=== PATIENT | male | born 1995 | race Caucasian/White ===

== ENCOUNTER 2022-11-05 09:42 | Emergency (ER) | payer OTHER, SELFPAY ==
[2022-11-05 09:44] VITALS: BP 131/70; PULSE 96; RESP 14; TEMP 36.3; O2SAT 99; BMI 23.4
--- NOTE | 2022-11-05 10:08 | CT_ITS ---
INDICATION: Pain EXAMINATION: CT ABDOMEN AND PELVIS WITH CONTRAST - CT Abdomen And Pelvis W/ Contrast Injection TECHNIQUE: Helically acquired images were obtained of the abdomen and pelvis following IV contrast. A radiation dose optimization technique was used for this scan. IV Contrast dosage and agent: Oral contrast: None. COMPARISON: None. FINDINGS: LOWER CHEST: Lung bases are clear. No cardiomegaly or pericardial effusion. LIVER: Homogeneous. No focal mass. GALLBLADDER AND BILIARY TREE: No calcified gallstones. No gallbladder distension or wall edema. No intra- or extrahepatic biliary ductal dilation. PANCREAS: No focal cystic or solid mass. SPLEEN: Normal size without focal cystic or solid mass. ADRENAL GLANDS: No nodules. KIDNEYS AND URETERS: Normal renal size and position. No hydronephrosis. PERITONEUM: No ascites or free air. No other fluid collection. BOWEL: No evidence of acute appendicitis. Within the midabdomen there is mild small bowel dilatation without evidence of differential air-fluid levels. This is seen extending from series 2 image 47 to series 2 image 76. Findings are consistent with mild small bowel ileus. Stomach is nondistended limiting evaluation, remainder of small bowel and colon normal in appearance. No focal inflammatory change. LYMPH NODES: No enlarged mesenteric or retroperitoneal lymph nodes. VESSELS: Aorta is non-dilated. URINARY BLADDER: Unremarkable. REPRODUCTIVE ORGANS: No pelvic masses. ABDOMINAL WALL: No discrete abdominal or pelvic wall hernia. BONES: No lytic or blastic abnormality. CT/Abdomen/Pelvis W IV Cont ONLY IMPRESSION: Mild small bowel ileus mid abdomen. Electronically Signed: Dominik Christian MD, SERA at 11:19 EST ,
--- NOTE | 2022-11-05 10:09 | ED.VIS.GI ---
HPI HPI - GI History of Present Illness Chief Complaint: Nausea/Vomiting Narrative Narrative: 27-year-old male past medical history of remote appendectomy presents with nausea, vomiting, and loose stool with crampy abdominal pain diffusely. He states his symptoms began around 2:00 in the morning, 8 hours ago. He had eaten ham and potatoes and beans, and got a funny feeling in his stomach. Since 2:00 in the morning, he has vomited 4 times, the first few times they became bilious, but then he states that he had dark brown emesis. He had loose stool. He denies any fevers but states he got chilled with his last vomiting, but no rigors. He does think that the food made it worse. He presents because he is unable to hold anything down and pain mainly in his epigastrium to right upper quadrant. PFSH PFSH Home Medications ondansetron 4 mg disintegrating tablet 4 mg PO Q6H PRN nausea and vomiting #12 tabs 11/05/22 [Rx Last Taken Unknown] Allergy/AdvReac Type Severity Reaction Status Date / Time No Known Allergies Allergy Verified 11/05/22 09:45 Social History Smoking Status: Never smoker ROS ROS ED ROS Narrative Constitutional: No fever, no shaking rigors/chills. HEENT: No sore throat. No neck pain. No loss of vision. No rhinorrhea. Cardiovascular: No chest pain. No palpitations. No pedal edema. Respiratory: No cough, no shortness of breath. Abdominal: Diffuse, crampy abdominal pain, with sharp epigastric and right upper quadrant. Positive nausea and vomiting x4 with loose stool. No bright red blood/hematemesis. Genitourinary: No dysuria. No hematuria. Musculoskeletal: No myalgias. No arthralgias. Neurologic: No headaches. No dizziness. No lightheadedness. Skin: No rash. No change in color. Psychiatric: No depression. No anxiety. EXAM Physical Exam Narrative Exam Narrative: Afebrile. Vital signs noted. HEENT: Normocephalic. Atraumatic. PERRL, EOMI. Neck soft and supple. No point tenderness or step off. Cardiovascular: Regular rate and rhythm. No murmurs, rubs, or gallops appreciated. Respiratory: No tachypnea. Lungs clear to auscultation bilaterally. Gastrointestinal: Abdomen soft, mild tenderness right upper quadrant to epigastrium, negative Michaud sign, with normoactive bowel sounds. No rebound or guarding. Neurological: Awake. Alert. Nonfocal, nonlateralizing. Skin: No rash. Normal color. No pallor. Musculoskeletal: No pedal edema. Full range of motion extremities. Const Vital Signs: 11/05/22 09:44 Temperature 97.3 F L Temperature Source Temporal Pulse Rate 96 Respiratory Rate 14 Blood Pressure 131/70 H Blood Pressure Mean 90 Pulse Ox 99 Oxygen Delivery Method Room Air MDM MDM MDM Narrative Medical decision making narrative: Given his nausea and vomiting with previous appendectomy, in the differential diagnosis is bowel obstruction, given his tenderness in the right upper quadrant concern is also for cholecystitis versus cholelithiasis. Comprehensive work-up was pursued. We will start with imaging with CT imaging to help rule out obstruction and to see if ultrasound is required of the right upper quadrant. I reviewed his laboratory work. He has slightly elevated white count of 12.6 which I think could be demargination from his vomiting, hemoglobin normal at 16.5, hematocrit 50 with a normal platelet count of 230. CMP shows BUN slightly elevated at 23 with creatinine 1.07. He has an AST of 61 and an ALT of 178 but normal alk phos of 54. Lipase normal at 80. I reviewed his CT imaging and reviewed the radiology report which shows mild small bowel ileus in the mid abdomen but no evidence of mechanical obstruction. Upon repeat examination, there is been no vomiting in the ED, patient states that he feels improved. With a mild ileus, I do feel that he can be discharged safely home with follow-up as he was instructed on bowel rest for at least a day. He had been bolused normal saline so I am not concerned about dehydration. He was written for ondansetron 4 mg oral disintegrating tablets #12. He will start a clear liquid diet tomorrow and advance as tolerated. He was told that his condition could worsen and that he should return with inability to tolerate liquids, increased pain, fever, new or worsening symptoms. Patient is agreeable to the plan. Disposition is discharged home in stable condition. Lab Data Attestation: I reviewed the patient's lab results. Labs: Laboratory Results - last 24 hr 11/05/22 11/05/22 10:22 10:22 WBC 12.6 H RBC 5.59 Hgb 16.5 Hct 50.0 MCV 89.4 MCH 29.5 MCHC 33.0 RDW Std Deviation 43.3 RDW Coeff of Aaron 13.2 Plt Count 230 MPV 10.8 Immature Gran % (Auto) 0.200 Neut % (Auto) 89.5 H Lymph % (Auto) 4.4 L Darke % (Auto) 4.5 Eos % (Auto) 1.2 Baso % (Auto) 0.2 Absolute Neuts (auto) 11.3 H Absolute Lymphs (auto) 0.56 L Nucleated RBC % 0 Platelet Estimate ADEQUATE RBC Morphology NORM C+C Sodium 141 Potassium 4.0 Chloride 104 Carbon Dioxide 31.0 Anion Gap 6 BUN 23 H Creatinine 1.07 Estim Creat Clear Calc 102.78 Est GFR (MDRD) Af Amer 106 Est GFR (MDRD) Non-Af 87 BUN/Creatinine Ratio 21.5 H Glucose 121 H Calcium 9.8 Total Bilirubin 1.00 AST 61 H ALT 178 H Alkaline Phosphatase 54 Total Protein 7.7 Albumin 4.5 Globulin 3.2 Albumin/Globulin Ratio 1.4 Lipase 80 Radiography Diagnostic Testing: Clinical Impression(s) from Imaging Studies Abdomen/Pelvis CT 11/05/22 10:08 IMPRESSION: Mild small bowel ileus mid abdomen. Electronically Signed: Dominik Christian MD, SER[facility] at 11:19 EST Reading Location ID and State: [facility] / [place] Tel , Service support , Discharge Plan Triage Chief Complaint: Nausea/Vomiting ED Provider: Jordan Miller Dx/Rx/DC Orders Clinical Impression: Nausea and vomiting, Ileus Instructions: Ileus, ED Vomiting (Adult) Prescriptions: New ondansetron 4 mg tablet,disintegrating 4 mg PO Q6H PRN (Reason: nausea and vomiting) Qty: 12 0RF [facility] [Primary [facility] Provider] - 3-5 Days if not improving Disposition Disposition: Home, Self Care
[2022-11-05] MEDS: 0.9% Normal Saline 1,000 ML 1000 ML IV (10:24)
[2022-11-05] MEDS: Dicyclomine 20 MG/2 ML Vial IM (10:29)
[2022-11-05] MEDS: Ondansetron 4 MG/2 ML Vial IV (10:29)
[2022-11-05 10:30] LABS: Absolute Lymphocyte Count 0.56 X10^3/uL (0.83-4.51); Absolute Neutrophil Count 11.3 X10^3/uL (2.0-7.7); Basophil# 0.03 X10^3/uL; Basophil% 0.2 % (0-1); Eosinophil# 0.15 X10^3/uL; Eosinophils% 1.2 % (0-5); Hemoglobin 16.5 g/dL (13.0-16.5); Lymphocyte # 0.56 X10^3/ul (0.83-4.51); Lymphocyte % 4.4 % (19-41); Mean Corpuscular Hgb 29.5 pg (27.0-32.0); Mean Corpuscular Volume 89.4 fL (80-94); Mean Platelet Vol. 10.8 fl (6.2-12.0); Monocyte# 0.57 X10^3/uL; Monocyte% 4.5 % (0-10); NRBC Flagged by Analyzer 0 % (0-5); Neutrophil # 11.25 X10^3/uL (2.7-7.7); Neutrophil % 89.5 % (47-70); POSITIVE DIFFERENTIAL YES; Platelet Count 230 K/mm3 (150-450); RBC Distribution Width CV 13.2 % (11.6-14.6); RBC Distribution Width SD 43.3 fl (35.1-43.9); Red Blood Count 5.59 M/mm3 (4.6-6.2); White Blood Count 12.6 K/mm3 (4.4-11.0)
[2022-11-05 10:41] LABS: Differential Indicated SCAN CRITERIA MET
[2022-11-05 10:48] LABS: ALB/GLOB Ratio 1.4 RATIO (0.9-2.4); AST(SGOT) 61 U/L (15-37); Alanine Aminotransfer ALT/SGPT 178 U/L (16-61); Albumin, Serum 4.5 g/dL (3.2-5.0); Alkaline Phosphatase 54 U/L (45-117); Anion Gap 6 (5-15); BUN 23 mg/dL (7-18); BUN/Creat Ratio 21.5 RATIO (10-20); Calcium,Total 9.8 mg/dL (8.5-10.1); Chloride 104 mmol/L (98-107); Creatinine, Serum 1.07 mg/dL (0.70-1.30); EST Glomerular Filtration Rate 87 mL/min (>60); Est Glom Filt Rate - Afr Amer 106 mL/min (>60); Estimated Creatinine Clearance 102.78 ml/min; Globulin 3.2 g/dL (2.2-4.2); Glucose 121 mg/dL (74-106); Lipase 80 U/L (73-393); Protein, Total 7.7 g/dL (6.4-8.2); Sodium Level 141 mmol/L (136-145)
[2022-11-05 11:15] LABS: Platelet Estimate ADEQUATE (ADEQ); Red Cell Morphology NORM C+C NORMAL (NORM C&C)
[2022-11-05 13:45] VITALS: BP 126/77; PULSE 62; RESP 15; O2SAT 98
== END 2022-11-05 13:57 | disposition home or self-care (01) ==
PROVIDERS: Emergency Provider Emergency Medicine; Visit Provider Emergency Medicine
DX: K56.7 Ileus, unspecified (principal)
CPT/HCPCS: 74177; 80053; 83690; 85025; 96361; 96372; 96374; 99282; Q9967; A4216; J2405

== ENCOUNTER 2023-05-22 19:01 | Emergency (ER) | payer OTHER, SELFPAY ==
[2023-05-22 19:02] VITALS: BP 129/75; PULSE 82; RESP 18; TEMP 36.1
[2023-05-22 19:03] VITALS: BP 129/75; PULSE 82; RESP 18; TEMP 36.1; BMI 23.1
--- NOTE | 2023-05-22 21:38 | EX.ED.DYSGE1 ---
HPI History of Present Illness Chief Complaint: General Illness Informant: patient Onset/Context/Timing Onset: Days (3 days) Context: Gradual Onset Narrative Narrative: Patient presents due to concerns for COVID. He was exposed to someone with COVID on Monday. On Monday he developed headache, dry throat, cough. He reports poor p.o. intake because it makes him nauseated. He did not test for COVID. PFSH PFSH Medical History no medical history no medical history Home Medications ondansetron 4 mg disintegrating tablet 4 mg PO Q6H PRN nausea and vomiting #12 tabs 11/05/22 [Rx Last Taken Unknown] Allergy/AdvReac Type Severity Reaction Status Date / Time No Known Allergies Allergy Verified 05/22/23 19:06 Surgical History (Updated 05/22/23 @ 21:[address] Sandhya Torres MD) History of cholecystectomy Social History Smoking Status: Never smoker ROS ROS ED Constitutional Constitutional ED: Reports fever(s) and subjective; Denies chills Eyes Eyes: Denies change in vision ENT ENT ED: Reports other Details: Dry throat ; Denies rhinorrhea or sore throat Cardiovascular Cardiovascular: Denies chest pain or palpitations Respiratory/Chest Respiratory/Chest: Reports cough; Denies dyspnea Gastrointestinal Gastrointestinal: Reports nausea; Denies abdominal pain, diarrhea or vomiting Genitourinary Genitourinary ED: Denies dysuria Musculoskeletal Musculoskeletal: Reports myalgias; Denies back pain or extremity pain Integumentary Denies Abrasions or rash Neurologic Neurologic: Reports headache(s); Denies weakness Psychiatric Psychiatric: Denies anxiety or depression Allergic/Immunologic Allergic/Immunologic ED: Denies lip swelling or urticaria EXAM Physical Exam Const Vital Signs: 05/22/23 19:03 05/22/23 19:02 05/22/23 21:32 Temperature 96.9 F L 96.9 F L Temperature Source Temporal Temporal Pulse Rate 82 82 Respiratory Rate 18 18 Respiratory Effort Normal Respiratory Pattern Normal Blood Pressure 129/75 H 129/75 H Blood Pressure Mean 93 93 Positive well nourished and well developed General Appearance ED: well developed Eyes EOMs intact bilaterally Chest Wall inspection of chest normal and palpation of chest normal Resp normal respiratory effort and clear to auscultation bilaterally Cardio regular rate and regular rhythm GI non-tender Palpation: soft Neuro oriented x3 and no sensory deficits noted Motor Exam: strength 5/5 throughout Psych mental status grossly normal Skin no rashes or lesions noted MDM MDM MDM Narrative Medical decision making narrative: Patient given Tylenol and Zofran. Chest x-ray obtained given the patient's cough to evaluate for pneumonia. Swab for COVID and influenza obtained. Radiography Diagnostic Testing: Clinical Impression(s) from Imaging Studies Chest X-Ray 05/22/23 21:40 IMPRESSION: No radiographic evidence of acute cardiopulmonary disease. Electronically Signed: Wolfgang Serra MD at 22:16 EDT , Treatment and Re-Evaluation :: Portable chest x-ray per my interpretation reveals no evidence of infiltrate. Influenza test is negative. COVID test is positive. Test results discussed with the patient. He will continue supportive care. Discharge Plan Triage Chief Complaint: General Illness ED Provider: Sandhya Torres Dx/Rx/DC Orders Clinical Impression: COVID-19 Instructions: Coronavirus Disease 2019 (COVID-19): Overview, Coronavirus Disease 2019 (COVID-19): Caring for Yourself or Others Prescriptions: No Action ondansetron 4 mg tablet,disintegrating 4 mg PO Q6H PRN (Reason: nausea and vomiting) Qty: 12 0RF [facility] Care Provider[facility] [Primary [facility] Provider] - As Needed Disposition Disposition: Home, Self Care
--- NOTE | 2023-05-22 21:40 | RAD_ITS ---
INDICATION: cough EXAMINATION/TECHNIQUE: X-RAY - XR Chest 1 View COMPARISON: None. FINDINGS: LINES/DEVICES: None. LUNGS: No consolidation, edema or effusion. No pneumothorax. MEDIASTINUM AND CARDIOVASCULAR STRUCTURES: Cardiac silhouette not enlarged. Central airways and mediastinal contour are unremarkable. BONES AND SOFT TISSUES: Minimal S-shaped scoliosis. RAD/Chest 1 View (Portable) IMPRESSION: No radiographic evidence of acute cardiopulmonary disease. Electronically Signed: Wolfgang Serra MD at 22:16 EDT ,
[2023-05-22] MEDS: Ondansetron ODT 4 MG Tablet PO (21:47)
[2023-05-22] MEDS: Acetaminophen 500 MG Tablet 1000 MG PO (21:47)
[2023-05-22 22:38] VITALS: O2SAT 96
== END 2023-05-22 22:39 | disposition home or self-care (01) ==
PROVIDERS: Emergency Provider Emergency Medicine; Visit Provider Emergency Medicine
DX: U07.1 COVID-19 (principal)
CPT/HCPCS: 71045; 87428; 99284